=== PATIENT | male | born 1980 | race Asian ===

== ENCOUNTER 2018-10-06 08:00 | Outpatient (CLI) | payer OTHER ==
--- NOTE | 2018-10-07 13:00 | XRAY Report ---
Reason: LEFT FOOT PAIN Procedure Date: 10/06/2018 Accession Number: [id number] / [id number] Procedure: WCP - Foot 3 View LT CPT Code: FULL RESULT: EXAM: LEFT FOOT RADIOGRAPHY EXAM DATE: 10/06/2018 11:50 AM. CLINICAL HISTORY: LEFT FOOT PAIN. COMPARISON: None. TECHNIQUE: 3 views. FINDINGS: Bones: Normal. No fractures or bone lesions. Joints: Normal. No subluxations. Soft Tissues: Normal. No soft tissue swelling. IMPRESSION: Normal foot radiography. [facility]
== END 2018-10-06 23:59 | disposition home or self-care (01) ==
LOC: DI.WCP 08:00 → EDSTATUS 13:02 → DI.WCP 23:59
PROVIDERS: ATTEND Family Medicine
DX: M79.672 Pain in left foot (principal)